=== PATIENT | female | born 2000 | race Caucasian/White ===

== ENCOUNTER 2024-08-22 07:39 | Inpatient (IN) ==
[2024-08-22] MEDS ORDERED: OXYTOCIN 30 UNITS/NSS 30 UNITS/500 ML BAG IV PRN (09:13)
[2024-08-22] MEDS ORDERED: LIDOCAINE 1% LOCAL 20 ML VIAL INFIL PRN (09:13)
--- NOTE | 2024-08-22 09:17 | Obstetrical Progress Note ---
Date of Service August 22, 2024 Assessment & Plan (1) Encounter for induction of labor: Plan: 24yo G1 @41 +weeks FHR; CAT1 Ctx; minimal VE; ft/post/thick No effacement EFW; 7-8lbs Plan Cytotec Po Q 4 Admission and Anticipated Discharge Date Admission Date: August 22, 2024 Results & Data Vital Signs (Past 12 Hours) Vital Signs Temp Pulse Resp BP 08/22/24 08:22 81 132/74 08/22/24 08:18 37.0 C 81 20 132/74
[2024-08-22 09:58] LABS: Hematocrit (blood only) 39.5 % (37.0-47.0); Mean Corpuscular Hgb Conc 35.4 g/dL (32.0-36.0); Mean Corpuscular Volume 87.4 fL (80.0-100.0); Mean Platelet Volume 12.2 fL (9.4-12.4); Platelet Count 197 K/uL (130-400); RDW Coefficient of Variation 13.2 % (11.5-14.5); RDW Standard Deviation 41.9 fL (36.4-46.3); Red Blood Count 4.52 M/uL (4.20-5.40); White Blood Count 15.06 K/ul (4.8-10.8)
[2024-08-22] MEDS ORDERED: Nursing to Pharmacy Communication SCH (10:00)
[2024-08-22] MEDS: miSOPROStoL 50 MCG TAB PO SCH (10:14)
[2024-08-22] MEDS ORDERED: miSOPROStoL 50 MCG TAB PO SCH ×2 (10:15→12:00)
--- OUTSIDE RECORDS SUMMARY | 2024-08-22 11:05 | External Medical Summary | Summary of Care ---
Author Name Unknown Organization [facility] Address [address] [place] [address] Phone [phone] Care Team Providers Care Nylon Machine Operator Name Role Phone Unavailable Primary Care Provider Unavailabl e Reason for Visit * Reason Onset Date Comments Abdominal Pain 07/19/[address] Valencia Encounter Details Date Type Department Care Team (Late st Contact Info) Description 07/19/2024 Telephone Gynecology/Obstetrics [facility] [address] [place] [address] Anton Valencia MD [address] [place] [id number] Abdominal Pain (Review with Dr. Valencia) Allergies Active Allergy Reactions Criticality Noted Date Comments Sulfa Antibiotics Rash 12/04/2011 documented as of this encounter (statuses as of 07/19/2024) Medications Medication Sig Dispensed Refills Start Date End Date Status 28-0.8 MG Oral Tablet Take by mouth. Active Breast PumpIndications:Breast feeding status of mother Z39.1 breast feeding status of mother 1 Each 07/10/2024 Active documented as of this encounter (statuses as of 07/19/2024) Active Problems Problem Noted Date Diagnosed Date Obesity in , antepartum 02/04/2024 Overview: Class 1 Need for rubella vaccination 01/10/2024 Supervision of normal first , antepartu m 01/06/2024 [place] (generalized anxiety disorder) 01/06/2024 Overview: Declines meds Intermittent asthma with reliever use up to twic e per week 01/27/2012 Estimated Date of Delivery Comme nts Yes 08/11/2024 Based on Ultraso und documented as of this encounter (statuses as of 07/19/2024) Resolved Problems Problem Noted Date Diagnosed Date Resolved Date Class 1 obesity due to exces s calories in adult 01/06/2024 02/04/2024 Tobacco smoking complicating 01/06/2024 07/17/2024 Overview: Vaping at [facility], has cut down since +HPT. QUIT Bronchospasm, exercise-induced 12/11/2011 01/27/2012 documented as of this encounter (statuses as of 07/19/2024) Immunizations Name Administration Dates Next Due DTaP Dipth/Tet/Acell Pertussis (Infanrix), Peds 09/16/2005,02/23/2003,02/14/2002,12/14,2001 HIB PRP-T, 4 Dose, PF, IM (H iberix, ActHib) 02/23/2003,02/14/2002,2001,09/28 HPV Vaccine, 4-Valent 02/10/2013 Hepatitis A, Ped/Adol., 18 y ear and below, 2-Dose 09/04/2008,09/01/2007 Hepatitis B, 0-19 yrs 02/23/2003,05/17/2002,09/0 04/2001 IPV - Polio Virus Vaccine (Inact) 2004,02/14/2002,2001,09/28 MMR - Measles/Mumps/Rubella Vaccine 09/16/2005,1 2001 Meningococcal Conjugate Vacc ine (Menactra/Menveo) 02/10/2013 Pneumococcal Conjugate Vacc, 13 Valent (Prevnar) 09/13/2003,02/14/2002,2001,09/28 Seasonal Influenza Intranasal 08/22/2012 TDAP, Age 7 and older, IM (Adacel) 02/10/2013 Varicella Vaccine (Chicken Pox) 09/04/2007,09/25 documented as of this encounter Social History Tobacco Use Types Packs/Day Years Used Date Smoking Tobacco: Former Cigarettes Smokeless Tobacco: Never Alcohol Use Standard Drinks/Week Comments No 0 (1 standard drink = 0.6 oz pur e alcohol) Hunger Vital Sign Answer Date Recorded Within the past 12 months, y ou worried that your food would run out before you got the money to buy more. Never true 07/17/20 24 Within the past 12 months, t he food you bought just didn't last and you didn't have money to get more. Never true 07/17/2024 [place] Depression Scale Answer Date Recorded [place] Depression Scale Total 5 06/23/2024 The thought of harming myself has occurred to me . Never 06/23/2024 Childcare Answer Date Recorded Do you feel overwhelmed with taking care of a child, family member or friend? No 07/17/2024 Does your family need help f inding childcare? (Household - for ages 0-17 years) Not on file 07/17/2024 Clothing Answer Date Recorded Have you been unable to get clothing when it was really needed? No 07/17/2024 Is your family able to get c lothes or diapers when needed? (Household - for ages 0-17 years) Not on file 07/17/2024 Personal Safety Answer Date Recorded Do you feel unsafe or have concerns for your saf ety? No 07/17/2024 Do you have concerns for you r family's safety? (Household - for ages 0-17 years) Not on file 07/17/2024 Utilities Answer Date Recorded Do you have trouble paying y our heating, water, or electric bill? No 07/17/2024 Is your family able to pay t he heat, water, or electric bill? (Household - for ages 0-17 years) Not on file 07/17/2024 Does your family have access to good internet? (Household - for ages 0-17 years) Not on file 07/17/2024 Employment Status Answer Date Recorded Are you unemployed or without regular income? No 07/17/2024 Does the household have a re gular source of income? (Household - for ages 0-17 years) Not on file 07/17/2024 Social Connections Answer Date Recorded How often do you feel lonely or isolated from th ose around you? Never 07/17/2024 Financial Resource Strain Answer Date R ecorded Do you have any trouble payi ng for your medications, or do you think you might in the future? No 07/17/2024 Does your family have troubl e paying for medicine? (Household - for ages 0-17 years) Not on file 07/17/2024 Transportation Needs Answer Date Record ed READ ONLY Do you have troubl e getting a ride to medical visits or work? Never True 07/17/2024 Does your family have a hard time getting a ride to doctors visits? (Household - for ages 0-17 years) Not on file 07/17/2024 Has lack of transportation k ept you from medical appointments, meetings, work, or from getting things needed for daily living? Check all that apply. No 07/17/2024 Do you (or your family) have trouble finding or paying for a ride (transportation)? (Household - for ages 0-17 years) Not on file 07/17/2024 Housing Stability Answer Date Recorded Do you currently live in a s helter or have no steady place to sleep at night? No 07/17/2024 READ ONLY Do you think you a re at risk of becoming homeless? No 07/17/2024 Does your family worry about paying for your home or becoming homeless? (Household - for ages 0-17 years) Not on file 0 07/17/2024 Are you homeless or worried that you might be in the future? No 07/17/2024 Are you (or your family) maria c eless or worried that you might be in the future? (Household - for ages 0-17 years) Not on file Food Insecurity Answer Date Recorded Do you need food for this week? No 07/17/2024 Are you able to get enough f ood for your family? (Household - for ages 0-17 years) Not on file 07/17/2024 Does your family need food t his week? (Household - for ages 0-17 years) Not on file 07/17/2024 Do you always have enough fo od for your family? (Household - for ages 0-17 years) Not on file 07/17/2024 Estimated Date of Delivery Comme nts Yes 08/11/2024 Based on Ultraso und Sex and Gender Information Value Date Recorded Sex Assigned at Female 01/17/2020 3:53 PM EST Gender Identity Female 01/17/2020 3:53 PM EST Sexual Orientation Straight 01/17/2020 3: 53 PM EST Job Start Date Occupation Industry Not on file Not on file Not on file documented as of this encounter Miscellaneous Notes * Telephone Encounter - Astrid Navarro RN - 07/19/2024 8:06 AM EDT Patient is currently 36w5d calling c/o abdominal pain. Is the pain radiate from your back to the abdomen? No Do the pains feel like contractions? yes Is the pain relieved by position change? no Are you having any vaginal bleeding? no Are you having any leaking of fluid? no Are you having any nausea, vomiting , bowel changes, fever or pain with urination? No Counseled pt to empty bladder, lie on left side, drink large glass of water and monitor contractions and movement for one hour and call with results. Patient to call back immediately if symptoms worsen, persist or no movement noted. Patient describes a tightening that also feels like gas pain. Coming and going for a couple hours. Unable to tell me how often they are occurring but experienced the pain while on phone call with me.Able to talk through. No bleeding or leaking. Unable to rate pain on scale. Has not tried tylenol. + FM. Will review with Dr. Valencia. Advised patient to call back immediately with changes. documented in this encounter Plan of Treatment Upcoming Encounters Date Type Department Care Team (Late st Contact Info) Description 07/25/2024 2:45 PM EDT Office Visit Gynecology/Obstetrics [facility] [address] [place] [address] Alva Clemons CRNP [address] [place] [address] Health Maintenance Due Date Last Done Comments Pneumococcal Vaccine: Pediatrics (0 to 5 Years) and At-Risk Patients (6 to 64 Years) (1 of 1 - PPSV23 or PCV20) 2007 09/13/2003, 02/14/2002, 2001, Additional history exists Depression Screening 2013 HPV (Gardasil) Vaccine (2 - 2-dose series) 08/13/2013 02/10/2013 DTap/Tdap Vaccines (7 - Td or Tdap) 02/10/2023 02/10/2013, 09/16/2005, 02/23/2003, Additional history exists COVID-19 Vaccine ( season) 2023 Influenza Vaccine (FLU shot) (#1) 2024 08/22/2012, 08/22/2012 Gonorrhea / Chlamydia Screen 01/06/2025, 06/21/2019, 05/05/2019, Additional history exists Pap Smear 01/06/2027 01/06/2024 Hepatitis B Vaccine Completed 02/23/2003, 05/17/2002, 2001 MENINGOCOCCAL (MENACTRA/MENVEO) Aged Out 02/10/2013, 02/10/2013 No longer eligibl e based on patient's age to complete this topic documented as of this encounter Medical Devices Not on filedocumented as of this encounter
--- OUTSIDE RECORDS SUMMARY | 2024-08-22 11:05 | External Medical Summary | Summary of Care ---
Author Name Unknown Organization [facility] Address [address] [place] [address] Phone [phone] Care Team Providers Care Content Specialist Name Role Phone Unavailable Primary Care Provider Unavailabl e Reason for Visit * Reason Onset Date Comments Abdominal Pain 07/19/[address] Valencia Encounter Details Date Type Department Care Team (Late st Contact Info) Description 07/19/2024 Telephone Gynecology/Obstetrics [facility] [address] [place] [address] Anton Valencia MD [address] [place] [...] money to get more. Never true 07/17/2024 [place] Depression Scale Answer Date Recorded [place] Depression Scale Total 5 06/23/2024 The thought [...] changes, fever or pain with urination? No Patient describes a tightening that also feels [...] 07/25/2024 2:45 PM EDT Office Visit Gynecology/Obstetrics [facility] [address] [address] BackerAlva CRNP [address] [place] [address] Health Maintenance Due Date Last Done Comments Pneumococcal Vaccine: Pediatrics (0 to 5 Years) and At-Risk Patients (6 to 64 Years) (1 of 1 - PPSV23 or PCV20) 2007 09/13/2003, 02/14/2002, 2001, Additional history exists Depression Screening 2013 HPV (Gardasil) Vaccine (2 - 2-dose series) 08/13/2013 02/10/2013 DTap/Tdap Vaccines (7 - Td or Tdap) 02/10/2023 02/10/2013, 09/16/2005, 02/23/2003, Additional history exists COVID-19 Vaccine (2022- season) 2023 Influenza Vaccine (FLU shot) (#1) [...]
--- OUTSIDE RECORDS SUMMARY | 2024-08-22 11:05 | External Medical Summary | Summary of Care ---
Author Name Unknown Organization [facility] Address [address] [place] [address] Phone [phone] Care Team Providers Care Director Of Maintenance Name Role Phone Unavailable Primary Care Provider Unavailabl e Reason for Visit * Reason Onset Date Comments Abdominal Pain 07/19/[address] Valencia Encounter Details Date Type Department Care Team (Late st Contact Info) Description 07/19/2024 Telephone Gynecology/Obstetrics [facility] [address] [place] [address] Anton Valencia MD [address] [place] [...] money to get more. Never true 07/17/2024 [place] Depression Scale Answer Date Recorded [place] Depression Scale Total 5 06/23/2024 The thought [...] Visit Gynecology/Obstetrics [facility] [address] [address] BackerAlva CRNP [address] [place] [address] Health Maintenance Due Date Last Done Comments [...]
--- OUTSIDE RECORDS SUMMARY | 2024-08-22 11:05 | External Medical Summary | Summary of Care ---
Author Name Unknown Organization [facility] Address [address] [place] [address] Phone [phone] Care Team Providers Care Postal Clerk Name Role Phone Unavailable Primary Care Provider Unavailabl e Reason for Visit * Reason Onset Date Comments Abdominal Pain 07/19/[address] Valencia Encounter Details Date Type Department Care Team (Late st Contact Info) Description 07/19/2024 Telephone Gynecology/Obstetrics [facility] [address] [place] [address] Anton Valencia MD [address] [place] [...] money to get more. Never true 07/17/2024 [place] Depression Scale Answer Date Recorded [place] Depression Scale Total 5 06/23/2024 The thought [...] Encounter - Astrid Navarro RN - 07/19/2024 8:45 AM EDT Patient Called back in while waiting for Dr. Valencia to call back , she reports the pain has become less intense. No other symptoms changes. Reviewed with Dr. Valencia oncall provider who advised me to use my best judgement. As the patient is not sure about her symptoms, but described a significant pain. I advised patient to go to [facility] for evaluation to rule out labor. Patient is agreeable to this and will have boyfriend drive her therenow. Called [facility] and d and made them aware. * Telephone Encounter - Astrid Navarro RN [...] EDT Office Visit Gynecology/Obstetrics [facility] [address] [place] [address] Backer, LISA Melgar [address] [place] [address] Health Maintenance Due Date Last Done Comments [...]
--- OUTSIDE RECORDS SUMMARY | 2024-08-22 11:05 | External Medical Summary | Summary of Care ---
Author Name Unknown Organization [facility] Address [address] [place] [address] Phone [phone] Care Team Providers Care Wall Taper Name Role Phone Unavailable Primary Care Provider Unavailabl e Reason for Visit * Reason Comments Return Visit Encounter Details Date Type Department Care Team (Late st Contact Info) Description 08/08/2024 2:15 PM EDT Office Visit Gynecology/Obstetric s [facility] [address] [place] [address] Elidia Raymundo CRNP [address] [place] [address] Supervision of normal first , antepartum*; [place] (generalized anxiety disorder); Need for rubella vaccination; Obesity in , antepartum Allergies Active Allergy Reactions Criticality Noted Date Comments Sulfa Antibiotics Rash 12/04/2011 documented as of this encounter (statuses as of 08/08/2024) Medications Medication Sig Dispensed Refills Start Date End Date Status 28-0.8 MG Oral Tablet Take by mouth. Active Breast Pump Dispense double electric breast pump. Dx:Z39.1 1 Each 08/03/2024 08/08/2024 Discontinued documented as of this encounter (statuses as of 08/08/2024) Active Problems Problem Noted Date Diagnosed Date [...] as of this encounter (statuses as of 08/08/2024) Resolved Problems Problem Noted Date Diagnosed Date Resolved Date Class 1 obesity due to exces s calories in adult 01/06/2024 02/04/2024 Tobacco smoking complicating 01/06/2024 07/17/2024 Overview: Vaping at [facility], has cut down since +HPT. QUIT Bronchospasm, exercise-induced 12/11/2011 01/27/2012 documented as of this encounter (statuses as of 08/08/2024) Immunizations Name Administration Dates Next Due DTaP Dipth/Tet/Acell Pertussis (Infanrix), Peds 09/16/2005,02/23/2003,02/14/2002,12/14,2001 HIB PRP-T, 4 Dose, PF, IM (H iberix, ActHib) 02/23/2003,02/14/2002,2001,09/28 HPV Vaccine, 4-Valent 02/10/2013 Hepatitis A, Ped/Adol., 18 y ear and below, 2-Dose 09/04/2008,09/01/2007 Hepatitis B, 0-19 yrs 02/23/2003,05/17/2002,0904/2001 IPV - Polio Virus Vaccine (Inact) 2004,02/14/2002,2001,09/28 Influenza Vaccine, Live, Int ranasal, Trivalent (Flumist) 08/22/2012 MMR - Measles/Mumps/Rubella Vaccine 09/16/2005,1 2001 Meningococcal Conjugate Vacc ine (Menactra/Menveo) 02/10/2013 Pneumococcal Conjugate Vacc, 13 Valent (Prevnar) 09/13/2003,02/14/2002,2001,09/28 TDAP, Age 7 and older, IM (Adacel) [...] money to get more. Never true 07/17/2024 [place] Depression Scale Answer Date Recorded [place] Depression Scale Total 5 06/23/2024 The thought [...] on file documented as of this encounter Last Filed Vital Signs Vital Sign Reading Time Taken Comments Blood Pressure 122/84 08/08/2024 2:01 PM EDT Pulse - - Temperature - - Respiratory Rate - - Oxygen Saturation - - Inhaled Oxygen Concentration - - Weight 105.7 kg (233 lb) 08/08/2024 2:01 PM EDT Height 167.6 cm (5' 6") 08/08/2024 2:01 PM EDT Body Mass Index 37.61 08/08/2024 2:01 PM EDT documented in this encounter Progress Notes * Elidia Raymundo CRNP - 08/08/2024 2:16 PM EDT 39w4d No concerns. Baby iss active. No contractions, bleeding, LOF. Breast pump faxed last week but claim it wasn't received. Faxed again today. IOL 08/22. LISA Tran documented in this encounter Nursing Notes * Annamarie Calloway LPN - 08/08/2024 2:07 PM EDT 39W5D documented in this encounter Plan of Treatment Upcoming Encounters Date Type Department Care Team (Late st Contact Info) Description 08/16/2024 8:15 AM EDT Office Visit Gynecology/Obstetrics [facility] [address] [place] [address] Elidia Raymundo CRNP [address] [place] [address] Health Maintenance Due Date Last Done Comments [...] 02/23/2003, Additional history exists COVID-19 Vaccine ( - season) 2024 Influenza Vaccine (FLU shot) (#1) 2024 08/22/2012, 08/22/2012 Gonorrhea / Chlamydia Screen 01/06/2025, 06/21/2019, 05/05/2019, Additional history exists Pap Smear 01/06/2027 01/06/2024 Hepatitis B Vaccine Completed 02/23/2003, 05/17/2002, 2001 MENINGOCOCCAL (MENACTRA/MENVEO) Aged Out 02/10/2013, 02/10/2013 No longer eligibl e based on patient's age to complete this topic documented as of this encounter Medical Devices Not on filedocumented as of this encounter Visit Diagnoses Diagnosis Supervision of normal first , antepartum- Primary [place] (generalized anxiety disorder) Generalized anxiety disorder Need for rubella vaccination Need for prophylactic vaccination and inoculation against rubella alone Obesity in , antepartum Obesity complicating , childbirth, or the puerperium, antepartum condition or complication documented in this encounter
--- OUTSIDE RECORDS SUMMARY | 2024-08-22 11:05 | External Medical Summary | Summary of Care ---
Author Name Unknown Organization [facility] Address [address] [place] [address] Phone [phone] Care Team Providers Care It Architecture Consultant Name Role Phone Unavailable Primary Care Provider Unavailabl e Reason for Visit * Reason Comments Return Visit Encounter Details Date Type Department Care Team (Late st Contact Info) Description 07/17/2024 11:45 AM EDT Office Visit Gynecology/Obstetric s [facility] [address] [facility] [place] [address] Jennifer Arreaga, DNP, CNM [address] [facility] [place] [id number] Supervision of normal first , antepartum*; [place] (generalized anxiety disorder); Need for rubella vaccination; Obesity in , antepartum Allergies Active Allergy Reactions Criticality Noted Date Comments Sulfa Antibiotics Rash 12/04/2011 documented as of this encounter (statuses as of 07/17/2024) Medications Medication Sig Dispensed Refills Start Date End Date Status 28-0.8 MG Oral Tablet Take by mouth. Active Breast PumpIndications:Breast feeding status of mother Z39.1 breast feeding status of mother 1 Each 07/10/2024 Active documented as of this encounter (statuses as of 07/17/2024) Active Problems Problem Noted Date Diagnosed Date [...] as of this encounter (statuses as of 07/17/2024) Resolved Problems Problem Noted Date Diagnosed Date Resolved Date Class 1 obesity due to exces s calories in adult 01/06/2024 02/04/2024 Tobacco smoking complicating 01/06/2024 07/17/2024 Overview: Vaping at [facility], has cut down since +HPT. QUIT Bronchospasm, exercise-induced 12/11/2011 01/27/2012 documented as of this encounter (statuses as of 07/17/2024) Immunizations Name Administration Dates Next Due DTaP [...] money to get more. Never true 07/17/2024 [place] Depression Scale Answer Date Recorded [place] Depression Scale Total 5 06/23/2024 The thought [...] Sign Reading Time Taken Comments Blood Pressure 124/76 07/17/2024 11:49 AM EDT Pulse - - Temperature - - Respiratory Rate - - Oxygen Saturation - - Inhaled Oxygen Concentration - - Weight 103.4 kg (228 lb) 07/17/2024 11:49 AM EDT Height 167.6 cm (5' 6") 07/17/2024 11:49 AM EDT Body Mass Index 36.8 07/17/2024 11:49 AM EDT documented in this encounter Progress Notes * Jennifer Arreaga DNP, PAT - 07/17/2024 12:04 PM EDT Kellie Dyson is a 23 year old female here for her routine OB appointment at 36w3d Her Estimated Date of Delivery: 08/11/24 REVIEW OF SYSTEMS: She affirms movement. Denies vaginal bleeding, LOF, contractions, N/V, headaches. Pt and partner are doing online classes and plan to attend the in person CBE class next month. States she will call back in with fax number for breast pump rx to be faxed PHYSICAL EXAM: Filed Vitals: 07/17/24 1149 BP: 124/76 Weight: 103.4 kg (228 lb) Height: 1.676 m (5' 6") +FHT 140 Fundal height 35cm SOBEIDA 15.6 EFW 66% ASSESSMENT/PLAN: (Z34.00) Supervision of normal first , antepartum (primary encounter diagnosis) Plan: GROUP B STREP CULTURE/PCR (F41.1) [place] (generalized anxiety disorder) - not on meds, controlled at this time. -Reviewed labor precautions, kick counts, loss of fluid, vaginal bleeding, round ligament pain, and encouraged hydration. - GBS swab collected today Mid Level Clinician Documentation Provider requested greenhouse or nursery transplanter. Name of greenhouse or nursery transplanter: Juana amado - RTO in 1 week Jennifer Arreaga DNP, PAT * Char Muro LPN - 07/17/2024 11:54 AM EDT 36w3d Growth today Sobeida 15.6 Growth 66% Needs gbs documented in this encounter Plan of Treatment Pending Results Name Type Priority Associated Diagnoses Date /Time GROUP B STREP CULTURE/PCR Lab Routine Supervision of normal first , antepartum 07/17/2024 12:50 PM EDT Scheduled Orders Name Type Priority Associated Diagnoses Orde r Schedule GROUP B STREP CULTURE/PCR Lab Routine Supervision of normal first , antepartum Expected: 07/17/2024, Expires: 07/17/2025 Health Maintenance Due Date Last Done Comments Pneumococcal Vaccine: Pediatrics (0 to 5 Years) and At-Risk Patients (6 to 64 Years) (1 of 1 - PPSV23 or PCV20) 2007 09/13/2003, 02/14/2002, 2001, Additional history exists Depression Screening 2013 HPV (Gardasil) Vaccine (2 - 2-dose series) 08/13/2013 02/10/2013 DTaP,Tdap,and Td Vaccines (7 - Td or Tdap) 02/10/2023 [...]
--- OUTSIDE RECORDS SUMMARY | 2024-08-22 11:05 | External Medical Summary | Summary of Care ---
Author Name Unknown Organization [facility] Address [address] [place] [address] Phone [phone] Care Team Providers Care Assistant Floor Covering Printer Name Role Phone Unavailable Primary Care Provider Unavailabl e Reason for Visit * Reason Comments Return Visit Encounter Details Date Type Department Care Team (Late st Contact Info) Description 07/25/2024 2:45 PM EDT Office Visit Gynecology/Obstetric s Niranjan Presley [address] [place] [address] Alva Clemons CRNP [address] [place] [address] Supervision of normal first , antepartum*; [place] (generalized anxiety disorder); Need for rubella vaccination; Obesity in , antepartum Allergies Active Allergy Reactions Criticality Noted Date Comments Sulfa Antibiotics Rash 12/04/2011 documented as of this encounter (statuses as of 07/25/2024) Medications Medication Sig Dispensed Refills Start Date End Date Status 28-0.8 MG Oral Tablet Take by mouth. Active Breast PumpIndications:Br east feeding status of mother Z39.1 breast feeding status of mother 1 Each 07/10/2024 07/25/2024 Discontinued( Medication List Clean Up) documented as of this encounter (statuses as of 07/25/2024) Active Problems Problem Noted Date Diagnosed Date [...] as of this encounter (statuses as of 07/25/2024) Resolved Problems Problem Noted Date Diagnosed Date Resolved Date Class 1 obesity due to exces s calories in adult 01/06/2024 02/04/2024 Tobacco smoking complicating 01/06/2024 07/17/2024 Overview: Vaping at [facility], has cut down since +HPT. QUIT Bronchospasm, exercise-induced 12/11/2011 01/27/2012 documented as of this encounter (statuses as of 07/25/2024) Immunizations Name Administration Dates Next Due DTaP [...] money to get more. Never true 07/17/2024 [place] Depression Scale Answer Date Recorded [place] Depression Scale Total 5 06/23/2024 The thought [...] Sign Reading Time Taken Comments Blood Pressure 122/78 07/25/2024 2:51 PM EDT Pulse - - Temperature - - Respiratory Rate - - Oxygen Saturation - - Inhaled Oxygen Concentration - - Weight 104.8 kg (231 lb) 07/25/2024 2:51 PM EDT Height - - Body Mass Index 37.28 07/17/2024 11:49 AM EDT documented in this encounter Progress Notes * Alva Clemons CRNP - 07/25/2024 2:51 PM EDT 37w4d Baby moving well. Having intermittent lower abdominal cramping, mild. No leaking/bleeding. She had called the office last week with cramping - this resolved completely after using the bathroom. Discussed peds, plans to use [facility] in [place]. Reviewed [facility] and labor signs, when to call. 1 week return LISA Zapata * Mirela Kinney LPN - 07/25/2024 2:51 PM EDT 37w4d Denies vaginal bleeding/rom + movement No new concerns documented in this encounter Plan of Treatment Upcoming Encounters Date Type Department Care Team (Late st Contact Info) Description 08/03/2024 8:15 AM EDT Office Visit Gynecology/Obstetrics Niranjan Presley [address] [place] [phone] Elidia Raymundo CRNP [address] [place] [address] Health Maintenance Due Date Last Done Comments [...]
--- OUTSIDE RECORDS SUMMARY | 2024-08-22 11:05 | External Medical Summary | Summary of Care ---
Author Name Unknown Organization [facility] Address [address] [place] [address] Phone [phone] Care Team Providers Care Access Liaison Name Role Phone Unavailable Primary Care Provider Unavailabl e Reason for Visit * Reason Comments Return Visit Encounter Details Date Type Department Care Team (Late st Contact Info) Description 08/03/2024 8:15 AM EDT Office Visit Gynecology/Obstetric s Niranjan Presley [address] [place] [address] Elidia Raymnudo CRNP [address] [place] [address] Supervision of normal first , antepartum*; [place] (generalized anxiety disorder); Need for rubella vaccination; Obesity in , antepartum Allergies Active Allergy Reactions Criticality Noted Date Comments Sulfa Antibiotics Rash 12/04/2011 documented as of this encounter (statuses as of 08/03/2024) Medications Medication Sig Dispensed Refills Start Date End Date Status 28-0.8 MG Oral Tablet Take by mouth. Active Breast Pump Dispense double electric breast pump. Dx:Z39.1 1 Each 08/03/2024 Active documented as of this encounter (statuses as of 08/03/2024) Active Problems Problem Noted Date Diagnosed Date [...] as of this encounter (statuses as of 08/03/2024) Resolved Problems Problem Noted Date Diagnosed Date Resolved Date Class 1 obesity due to exces s calories in adult 01/06/2024 02/04/2024 Tobacco smoking complicating 01/06/2024 07/17/2024 Overview: Vaping at [facility], has cut down since +HPT. QUIT Bronchospasm, exercise-induced 12/11/2011 01/27/2012 documented as of this encounter (statuses as of 08/03/2024) Immunizations Name Administration Dates Next Due DTaP [...] money to get more. Never true 07/17/2024 [place] Depression Scale Answer Date Recorded [place] Depression Scale Total 5 06/23/2024 The thought [...] Sign Reading Time Taken Comments Blood Pressure 120/82 08/03/2024 8:16 AM EDT Pulse - - Temperature - - Respiratory Rate - - Oxygen Saturation - - Inhaled Oxygen Concentration - - Weight 105.5 kg (232 lb 9.6 oz) 08/03/2024 8:16 AM EDT Height - - Body Mass Index 37.54 07/17/2024 11:49 AM EDT documented in this encounter Progress Notes * Elidia Raymundo CRNP - 08/03/2024 8:32 AM EDT 38w6d No concerns. Baby is active. Denies contractions, occasional cramping. No bleeding or LOF. Breast pump rx faxed to number given by pt. Discussed IOL. She is hoping to avoid this but is agreeable to any time after 41w. LISA Tran * Lorri Miles CMA - 08/03/2024 8:16 AM EDT 38w6d Denies any concerns documented in this encounter Plan of Treatment Upcoming Encounters Date Type Department Care Team (Late st Contact Info) Description 08/08/2024 2:15 PM EDT Office Visit Gynecology/Obstetrics Niranjan Presley [address] [place] [address] Elidia Raymundo CRNP [address] [place] [address] Health Maintenance Due Date Last Done Comments [...]
--- OUTSIDE RECORDS SUMMARY | 2024-08-22 11:05 | External Medical Summary | Summary of Care ---
Author Name Unknown Organization [facility] Address [address] [place] [address] Phone [phone] Care Team Providers Care Liberal Arts Teacher Name Role Phone Unavailable Primary Care Provider Unavailabl e Reason for Visit * Reason Onset Date Comments Abdominal Pain 07/19/[address] Valencia Encounter Details Date Type Department Care Team (Late st Contact Info) Description 07/19/2024 Telephone Gynecology/Obstetrics [facility] [address] [place] [address] Anton Valencia MD [address] [place] [...] money to get more. Never true 07/17/2024 [place] Depression Scale Answer Date Recorded [place] Depression Scale Total 5 06/23/2024 The thought [...] Has not tried tylenol. + FM. Will call and review with Dr. Valencia. documented in this encounter Plan of Treatment Upcoming Encounters Date Type Department Care Team (Late st Contact Info) Description 07/25/2024 2:45 PM EDT Office Visit Gynecology/Obstetrics Niranjan Presley [address] [place] [address] Alva Clemons CRNP [address] [address] Health Maintenance Due Date Last Done Comments [...]
--- OUTSIDE RECORDS SUMMARY | 2024-08-22 11:05 | External Medical Summary | Summary of Care ---
Author Name Unknown Organization [facility] Address [address] [place] [address] Phone [phone] Care Team Providers Care Ward Maid Name Role Phone Unavailable Primary Care Provider Unavailabl e Reason for Visit * Reason Comments Return Visit Encounter Details Date Type Department Care Team (Late st Contact Info) Description 07/17/2024 11:45 AM EDT Office Visit Gynecology/Obstetric s [facility] [address] [facility] [place] [address] Jennifer Arreaga, DNP, CNM [address] [facility] [place] [phone] Supervision of normal first , antepartum*; [place] [...] money to get more. Never true 07/17/2024 [place] Depression Scale Answer Date Recorded [place] Depression Scale Total 5 06/23/2024 The thought [...] encouraged hydration. - GBS swab collected today Builder'S Labourer Documentation Provider requested piece presser. Name of piece presser: Juana amado - RTO in 1 week Jennifer Arreaga DNP, PAT * Char Muro LPN - 07/17/2024 11:54 AM EDT 36w3d Growth today Sobeida 15.6 Growth 66% Needs gbs documented in this encounter Plan of Treatment Scheduled Orders Name Type Priority Associated Diagnoses [...]
--- OUTSIDE RECORDS SUMMARY | 2024-08-22 11:05 | External Medical Summary | Summary of Care ---
Author Name Unknown Organization [facility] Address [address] [place] [address] Phone [phone] Care Team Providers Care Pizza Driver Name Role Phone Unavailable Primary Care Provider Unavailabl e Reason for Visit * Reason Onset Date Comments Appointment 07/27/2024 Encounter Details Date Type Department Care Team (Late st Contact Info) Description 07/27/2024 Telephone Gynecology/Obstetrics [facility] [address] [facility] [place] [address] Services, Scheduling [address] [place] [address] Appointment Allergies Active Allergy Reactions Criticality Noted Date Comments Sulfa Antibiotics Rash 12/04/2011 documented as of this encounter (statuses as of 2024) Medications Medication Sig Dispensed Refills Start Date End Date Status 28-0.8 MG Oral Tablet Take by mouth. Active documented as of this encounter (statuses as of 2024) Active Problems Problem Noted Date Diagnosed Date [...] as of this encounter (statuses as of 2024) Resolved Problems Problem Noted Date Diagnosed Date Resolved Date Class 1 obesity due to exces s calories in adult 01/06/2024 02/04/2024 Tobacco smoking complicating 01/06/2024 07/17/2024 Overview: Vaping at [facility], has cut down since +HPT. QUIT Bronchospasm, exercise-induced 12/11/2011 01/27/2012 documented as of this encounter (statuses as of 2024) Immunizations Name Administration Dates Next Due DTaP [...] money to get more. Never true 07/17/2024 [place] Depression Scale Answer Date Recorded [place] Depression Scale Total 5 06/23/2024 The thought [...] encounter Miscellaneous Notes * Telephone Encounter - Zoie Myers OSA - 07/27/2024 2:47 PM EDT Pt called wanting to know if 08/03 appt can be r/s for 07/31, pt having car trouble and can not make it any other day next week for weekly appts. Please assist. Thank you documented in this encounter Plan of Treatment Upcoming Encounters Date Type Department Care Team (Late st Contact Info) Description 08/03/2024 8:15 AM EDT Office Visit Gynecology/Obstetrics Niranjan Presley [address] [place] [address] Elidia Raymundo CRNP [address] [place] [address] Health Maintenance Due Date Last Done Comments [...] Additional history exists COVID-19 Vaccine ( - 2022- season) 2024 Influenza Vaccine (FLU shot) (#1) [...]
--- OUTSIDE RECORDS SUMMARY | 2024-08-22 11:06 | External Medical Summary ---
Author Name Unknown Address Unknown Organization K01:[facility] [place] [address] [place] [address] Laboratory Report Ordering Provider Test Date Status DINAH CANTOR 07/17/2024 12:50:01 Final Observation Date Value Abnormality Reference (Units ) Status Streptococcus agalactiae DNA [Presence] in Specimen by LAZARA with probe detection 07/17/2024 12:50:01 Negative Negative Final No Group B Streptococcus det ected by culture-enhanced PCR (amplified probe). GBS GBSCT - [facility] 07/17/2024 12:50:01 0.0 Final GBS SPCCT - [facility] 07/17/2024 12:50:01 30.3 Final Performing Location [facility] [place] - [address] [place] [address]
--- OUTSIDE RECORDS SUMMARY | 2024-08-22 11:06 | External Medical Summary ---
Author Name Unknown Address Unknown Organization K0G:[facility] [place] [address] [place] [address] Laboratory Report Ordering Provider Test Date Status DONNIE HOLMAN 06/23/2024 09:49:52 Final Observation Date Value Abnormality Reference (Units ) Status WBC, Total 06/23/2024 09:49:52 12.76 Above high normal 4 .00-10.80 (K/uL) Final RBC 06/23/2024 09:49:52 4.22 3.85-5.15 (M/uL) Final Hemoglobin 06/23/2024 09:49:52 13.0 12.0-15.3 (g/dL) Final HCT 06/23/2024 09:49:52 38.2 36.0-45.2 (%) Final MCV 06/23/2024 09:49:52 90.5 81.5-97.5 (fL) Final MCH 06/23/2024 09:49:52 30.8 27.0-34.0 (pg) Final MCHC 06/23/2024 09:49:52 34.0 32.0-36.0 (g/dL) Final RDW 06/23/2024 09:49:52 14.1 11.5-15.5 (%) Final Platelets 06/23/2024 09:49:52 209 140-400 (K /uL) Final MPV 06/23/2024 09:49:52 10.7 6.6-11.1 ( fL) Final [facility]forming Location [facility] [facility] [address] [place] [address]
--- OUTSIDE RECORDS SUMMARY | 2024-08-22 11:06 | External Medical Summary | Summary of Care ---
Author Name Unknown Organization [facility] Address [address] [place] [address] Phone [phone] Care Team Providers Care Nurses' Aide Name Role Phone Unavailable Primary Care Provider Unavailabl e Reason for Visit * Reason Comments New Visit Encounter Details Date Type Department Care Team (Late st Contact Info) Description 07/10/2024 9:30 AM EDT Office Visit Gynecology/Obstetric s [facility] [address] [facility] [place] [address] Jennifer Arreaga, DNP, CNM [address] [facility] [place] [address] Supervision of normal first , antepartum*; [place] (generalized anxiety disorder); Need for rubella vaccination; Obesity in , antepartum; Breast feeding status of mother; Fundal height low for dates in third trimester Allergies Active Allergy Reactions Criticality Noted Date Comments Sulfa Antibiotics Rash 12/04/2011 documented as of this encounter (statuses as of 07/10/2024) Medications Medication Sig Dispensed Refills Start Date End Date Status 28-0.8 MG Oral Tablet Take by mouth. Active Breast PumpIndications:Breast feeding status of mother Z39.1 breast feeding status of mother 1 Each 07/10/2024 Active documented as of this encounter (statuses as of 07/10/2024) Active Problems Problem Noted Date Diagnosed Date Obesity in , antepartum 02/04/2024 Overview: Class 1 Need for rubella vaccination 01/10/2024 Supervision of normal first , antedallin m 01/06/2024 [place] (generalized anxiety disorder) 01/06/2024 Overview: Declines meds Tobacco smoking complicating Overview: Vaping at [facility], has cut down since +HPT. Intermittent asthma with reliever use up to twic e per week 01/27/2012 Estimated Date of Delivery Comme nts Yes 08/11/2024 Based on Ultraso und documented as of this encounter (statuses as of 07/10/2024) Resolved Problems Problem Noted Date Diagnosed Date Resolved Date Class 1 obesity due to exces s calories in adult 01/06/2024 02/04/2024 Bronchospasm, exercise-induced 12/11/2011 01/27/2012 documented as of this encounter (statuses as of 07/10/2024) Immunizations Name Administration Dates Next Due DTaP [...] the money to buy more. Never true 01/06/20 24 Within the past 12 months, t he food you bought just didn't last and you didn't have money to get more. Never true 01/06/2024 [place] Depression Scale Answer Date Recorded [place] Depression Scale Total 5 06/23/2024 The thought of harming myself has occurred to me . Never 06/23/2024 Childcare Answer Date Recorded Do you feel overwhelmed with taking care of a child, family member or friend? Yes 01/06/2024 Does your family need help f inding childcare? (Household - for ages 0-17 years) Not on file 01/06/2024 Clothing Answer Date Recorded Have you been unable to get clothing when it was really needed? No 01/06/2024 Is your family able to get c lothes or diapers when needed? (Household - for ages 0-17 years) Not on file 01/06/2024 Personal Safety Answer Date Recorded Do you feel unsafe or have concerns for your saf ety? No 01/06/2024 Do you have concerns for you r family's safety? (Household - for ages 0-17 years) Not on file 01/06/2024 Utilities Answer Date Recorded Do you have trouble paying y our heating, water, or electric bill? No 01/06/2024 Is your family able to pay t he heat, water, or electric bill? (Household - for ages 0-17 years) Not on file 01/06/2024 Does your family have access to good internet? (Household - for ages 0-17 years) Not on file 01/06/2024 Employment Status Answer Date Recorded Are you unemployed or without regular income? Ye s 01/06/2024 Does the household have a re gular source of income? (Household - for ages 0-17 years) Not on file 01/06/2024 Social Connections Answer Date Recorded How often do you feel lonely or isolated from th ose around you? Often 01/06/2024 Financial Resource Strain Answer Date R ecorded Do you have any trouble payi ng for your medications, or do you think you might in the future? No 01/06/2024 Does your family have troubl e paying for medicine? (Household - for ages 0-17 years) Not on file 01/06/2024 Transportation Needs Answer Date Record ed READ ONLY Do you have troubl e getting a ride to medical visits or work? Never True 01/06/2024 Does your family have a hard time getting a ride to doctors visits? (Household - for ages 0-17 years) Not on file 01/06/2024 Has lack of transportation k ept you from medical appointments, meetings, work, or from getting things needed for daily living? Check all that apply. (Adult - for ages 18 years and over) Not on file 01/06/2024 Do you (or your family) have trouble finding or paying for a ride (transportation)? (Household - for ages 0-17 years) Not on file 01/06/2024 Housing Stability Answer Date Recorded Do you currently live in a s helter or have no steady place to sleep at night? No 01/06/2024 READ ONLY Do you think you a re at risk of becoming homeless? No 01/06/2024 Does your family worry about paying for your home or becoming homeless? (Household - for ages 0-17 years) Not on file 0 01/06/2024 Are you homeless or worried that you might be in the future? (Adult - for ages 18 years and over) Not on file Are you (or your family) maria c eless or worried that you might be in the future? (Household - for ages 0-17 years) Not on file Food Insecurity Answer Date Recorded Do you need food for this week? No 01/06/2024 Are you able to get enough f ood for your family? (Household - for ages 0-17 years) Not on file 01/06/2024 Does your family need food t his week? (Household - for ages 0-17 years) Not on file 01/06/2024 Do you always have enough fo od for your family? (Household - for ages 0-17 years) Not on file 01/06/2024 Estimated Date of Delivery Comme nts Yes [...] Sign Reading Time Taken Comments Blood Pressure 104/70 07/10/2024 9:49 AM EDT Pulse - - Temperature - - Respiratory Rate - - Oxygen Saturation - - Inhaled Oxygen Concentration - - Weight 104.3 kg (230 lb) 07/10/2024 9:49 AM EDT Height - - Body Mass Index 37.12 05/22/2024 11:09 AM EDT documented in this encounter Progress Notes * Jennifer Arreaga, SARAH, CNM - 07/10/2024 10:04 AM EDT Kellie Dyson is a 23 year old female here for her routine OB appointment at 35w3d Her Estimated Date of Delivery: 08/11/24 REVIEW OF SYSTEMS: She affirms movement. Denies vaginal bleeding, LOF, contractions, N/V, headaches. Feels increased pelvic pressure as babyis growing. PHYSICAL EXAM: Filed Vitals: 07/10/24 0949 BP: 104/70 Weight: 104.3 kg (230 lb) +FHT : 150 Fundal height : 32.5 ASSESSMENT/PLAN: (Z34.00) Supervision of normal first , antepartum (primary encounter diagnosis) Plan: (F41.1) [place] (generalized anxiety disorder) Plan: States she just gets nervous about hospital and delivery, encouraged CBE and (Z39.1) Breast feeding status of mother Plan: Breast Pump Rx printed (O26.843) Fundal height low for dates in third trimester Plan: PREG FOLLOW-UP EACH FETUS Supervision of - recommended flu vaccine - patient declines today - recommended Covid vaccine due to increased risk of severe disease in . Patient declines. Declined tdap - discussed GBS and to expect swab to be complete at next visit - labor precautions and kick counts reviewed - RTO in 1 weeks , growthUS with next visit as FH is 32.5cm Jennifer Arreaga DNP, PAT * Cara Junior RN - 07/10/2024 9:49 AM EDT Slide down driveway on Wednesday. Hit bottom not belly. Has not had bleeding or pain with belly. documented in this encounter Plan of Treatment Scheduled Orders Name Type Priority Associated Diagnoses Orde r Schedule US PREG FOLLOW-UP EACH FETUS Medical Imaging Routine Fundal height low for dates in third trimester Expected: 07/17/2024, Expires: 08/10/2025 Health Maintenance Due Date Last Done Comments [...] or the puerperium, antepartum condition or complication Breast feeding status of mother care and examination of lactating mother Fundal height low for dates in third trimester documented in this encounter
--- OUTSIDE RECORDS SUMMARY | 2024-08-22 11:06 | External Medical Summary | Summary of Care ---
Author Name Unknown Organization [facility] Address [address] [place] [address] Phone [phone] Care Team Providers Care Tubular Splitting Machine Tender Name Role Phone Unavailable Primary Care Provider Unavailabl e Reason for Visit * Reason Comments Outpatient Testing Encounter Details Date Type Department Care Team (Late st Contact Info) Description 06/23/2024 9:50 AM EDT Laboratory Laboratory, [facility] [address] [facility] [place] [phone] [facility] [address] [facility] [place] [address] Supervision of normal first , antepartum Allergies Active Allergy Reactions Criticality Noted Date Comments Sulfa Antibiotics Rash 12/04/2011 documented as of this encounter (statuses as of 06/23/2024) Medications Medication Sig Dispensed Refills Start Date End Date Status 28-0.8 MG Oral Tablet Take by mouth. Active documented as of this encounter (statuses as of 06/23/2024) Active Problems Problem Noted Date Diagnosed Date [...] as of this encounter (statuses as of 06/23/2024) Resolved Problems Problem Noted Date Diagnosed Date Resolved Date Class 1 obesity due to exces s calories in adult 01/06/2024 02/04/2024 Bronchospasm, exercise-induced 12/11/2011 01/27/2012 documented as of this encounter (statuses as of 06/23/2024) Immunizations Name Administration Dates Next Due DTaP [...] money to get more. Never true 01/06/2024 [place] Depression Scale Answer Date Recorded [place] Depression Scale Total 13 01/06/2024 The thought of harming myself has occurred to me . Never 01/06/2024 Childcare Answer Date Recorded Do you feel [...] on file documented as of this encounter Plan of Treatment Upcoming Encounters Date Type Department Care Team (Late st Contact Info) Description 07/10/2024 9:30 AM EDT [facility] [address] [facility] [place] [address] Jennifer Arreaga, DNP, CNM [address] [place] [address] Pending Results Name Type Priority Associated Diagnoses Date /Time CBC Lab Routine Supervision of normal first , antepartum 06/23/2024 9:49 AM EDT Health Maintenance Due Date Last Done Comments [...] Diagnoses Diagnosis Supervision of normal first , antepartum documented in this encounter
--- OUTSIDE RECORDS SUMMARY | 2024-08-22 11:06 | External Medical Summary | Summary of Care ---
Author Name Unknown Organization [facility] Address [address] [place] [address] Phone [phone] Care Team Providers Care Insert Molding Operator Name Role Phone Unavailable Primary Care Provider Unavailabl e Reason for Visit * Reason Comments Return Visit Encounter Details Date Type Department Care Team (Late st Contact Info) Description 06/23/2024 9:30 AM EDT Office Visit Gynecology/Obstetric [facility] [address] [facility] [place] [address] Letitia Johansen, [facility] [address] [place] [address] Supervision of normal first , antepartum*; L[place] (generalized anxiety disorder); Need for rubella vaccination; Class 1 obesity Allergies Active Allergy Reactions Criticality Noted Date [...] money to get more. Never true 01/06/2024 Burton Depression Scale Answer Date Recorded Burton Depression Scale Total 13 01/06/2024 The thought [...] Sign Reading Time Taken Comments Blood Pressure 122/72 06/23/2024 9:23 AM EDT Pulse - - Temperature - - Respiratory Rate - - Oxygen Saturation - - Inhaled Oxygen Concentration - - Weight 103 kg (227 lb) 06/23/2024 9:23 AM EDT Height - - Body Mass Index 36.64 05/22/2024 11:09 AM EDT documented in this encounter Progress Notes * Letitia Johansen CNM - 06/23/2024 9:30 AM EDT Kellie Dyson is a 23 year old female here for her routine OB appointment at 33w0d Her Estimated Date of Delivery: 08/11/24 REVIEW OF SYSTEMS: She affirms movement. Denies vaginal bleeding, LOF, contractions, headaches, vision changes, and RUQ pain. Just getting over being sick and thinks she had the flu. No longer having any fevers or chills or other concerns. Had some cramping in her upper belly. Went to L+D Wednesday night and said everything was fine. Denies dizziness, chest pain, and SOB. Had a syncopal episode but has not had any since then. Did not have EKG done. Quit tobacco as soon as she found out she was . Denies vaping or marijuana. PHYSICAL EXAM: Filed Vitals: 06/23/24 09 BP: 122/72 Weight: 103 kg (227 lb) +FHT 140-150bpm Fundal height: 32cm ASSESSMENT/PLAN: (F41.1) L[place]ON (generalized anxiety disorder) (Z23) Need for rubella vaccination Plan: -Will need MMR vaccine (E66.9) Class 1 obesity Plan: -Pregravid BMI 34.56 (Z34.00) Supervision of normal first , antepartum (primary encounter diagnosis) Plan: -Repeat CBC today per previous provider (due to elevated WBC) -Recommended childbirth education classes through "[facility]" - labor precautions and kick counts reviewed - RTO in 2 weeks Letitia Johansen CNM * Mirela Kinney LPN - 06/23/2024 9:23 AM EDT 33w0d Denies vaginal bleeding/rom + movement No new concerns documented in this encounter Plan of Treatment Upcoming Encounters Date Type Department Care Team (Late st Contact Info) Description 07/10/2024 9:30 AM EDT Office Visit Gynecology/Obstetrics [facility] [address] [facility] [place] [address] Jennifer Arreaga, SARAH, CNM [address] [place] [id number] Health Maintenance Due Date Last Done Comments [...] prophylactic vaccination and inoculation against rubella alone Class 1 obesity documented in this encounter
[2024-08-22] MEDS: LACTATED RINGER'S 1,000 ML IV PRN (18:23)
--- NOTE | 2024-08-22 20:56 | Obstetrical Progress Note ---
Date of Service August 22, 2024 Assessment & Plan (1) Encounter for induction of labor: Plan: Pt doing well No complaints VE; ft/post/thick Ctx 2-5 Cervidil placed in Vagina Admission and Anticipated Discharge Date Admission Date: August 22, 2024 Results & Data Vital Signs (Past 12 Hours) Vital Signs Temp Pulse Resp BP 08/22/24 20:15 37.0 C 18 08/22/24 20:10 18 08/22/24 20:10 37.0 C 18 08/22/24 20:09 63 132/85 08/22/24 16:16 67 130/75 08/22/24 16:15 16 08/22/24 16:15 37.1 C 16 08/22/24 12:26 36.8 C 69 122/78 08/22/24 10:16 97 H 136/92
[2024-08-22] MEDS: DINOPROSTONE 10 MG INSERT PV ONE (20:57)
[2024-08-23] MEDS: BUTORPHANOL TARTRATE 2 MG/ML VIAL IV ONE (04:36)
--- NOTE | 2024-08-23 04:45 | Anesthesiology Consultation ---
Date of Service August 23, 2024 Assessment & Plan (1) Encounter for pre-operative examination: Chart Review Chart Review: Acceptable Risk for Labor Epidural History Height/Weight Height: 5 ft 7 in Weight: 101.151 kg Allergies Allergy/AdvReac Type Severity Reaction Status Date / Time Sulfa (Sulfonamide Allergy Severe Anaphylaxis Verified 05/28/19 21:57 Antibiotics) Medications Home Medications Medication Instructions Recorded Confirmed Last Taken zvklchso-anw-Rz-FA 1 mg 1 tab PO DAILY 06/18/24 06/18/24 1 Day Ago tablet ~06/17/24 Active Medications Generic Name Dose Route Start Last Admin Trade Name Freq PRN Reason Stop Dose Admin Lactated Ringer's 1,000 mls @ 125 mls/hr 08/22/24 09:13 08/23/24 04:37 Lr IV 08/24/24 09:12 125 mls/hr .Q8H PRN Administration L&D Protocol Protocol Misoprostol 50 mcg 08/22/24 10:15 08/23/24 04:36 Misoprostol 50 Mcg Tab PO 09/21/24 10:14 Not Given Q4H JOSUE Past Medical History Medical History Asthma Anxiety Past Surgical History Surgical History History of placement of ear tubes Social History Smoking Status: Former smoker Do You Dip or Chew Tobacco: No Hx Alcohol Use: No Hx Substance Use: No Physical Exam Vital Signs Last Vital Signs Temp 37.0 C 08/22/24 20:15 Pulse 84 08/23/24 04:38 Resp 18 08/22/24 20:15 BP 142/71 H 08/23/24 04:14 Pulse Ox 93 08/23/24 04:38 Testing Laboratory Results 08/22/24 09:31
[2024-08-23] MEDS ORDERED: NALOXONE HCL 0.4 MG/1 ML VIAL/CARP IV PRN (05:11)
[2024-08-23] MEDS ORDERED: ePHEDrine sulfate 50 MG/ML AMP IV PRN (05:11)
[2024-08-23] MEDS: fentANYL 2 MCG/ML BUPIVacaine 0.125%-NSS 100ML BAG ONE (05:11)
[2024-08-23] MEDS ORDERED: fentANYL 2 MCG/ML BUPIVacaine 0.125%-NSS 100ML BAG EPI PRN (05:11)
[2024-08-23] MEDS ORDERED: fentaNYL citrate PF 100 MCG/2 ML VIAL EPI PRN (05:11)
[2024-08-23] MEDS ORDERED: BUPIVACAINE 0.25% PF 30 ML VIAL EPI PRN (05:11)
[2024-08-23] MEDS ORDERED: NALOXONE HCL 1 MG in SODIUM CHLORIDE 0.9% 1,000 ML IV PRN (05:11)
[2024-08-23] MEDS ORDERED: LIDOCAINE 2% MPF LOCAL 5 ML VIAL EPI PRN (05:11)
[2024-08-23] MEDS ORDERED: ONDANSETRON INJ 2 MG/ML 2 ML VIAL IV PRN (05:11)
[2024-08-23] MEDS ORDERED: ROPIVACAINE 0.5% PF 5 MG/ML 20 ML VIAL EPI PRN (05:11)
[2024-08-23] MEDS ORDERED: SODIUM CHLORIDE 0.9% PF INJ 10 ML VIAL EPI PRN (05:11)
[2024-08-23] MEDS: fentaNYL citrate PF 100 MCG/2 ML VIAL ONE (05:16)
[2024-08-23] MEDS: LIDOCAINE 2%/EPINEPHRINE 1:200,000 20 ML PF ONE (05:17)
[2024-08-23] MEDS: BUPIVACAINE 0.25% PF 30 ML VIAL ONE (05:17)
[2024-08-23] MEDS: ePHEDrine sulfate 50 MG/ML AMP ONE (05:51)
[2024-08-23] MEDS: SODIUM CHLORIDE 0.9% PF INJ 10 ML VIAL ONE (05:51)
[2024-08-23] MEDS: BUPIVACAINE 0.25% PF 30 ML VIAL EPI STA (05:51)
[2024-08-23] MEDS: LIDOCAINE 2%/EPINEPHRINE 1:200,000 20 ML PF EPI STA (05:52)
[2024-08-23] MEDS: fentaNYL citrate PF 100 MCG/2 ML VIAL EPI STA (05:52)
[2024-08-23] MEDS: SODIUM CHLORIDE 0.9% PF INJ 10 ML VIAL EPI STA (05:53)
--- NOTE | 2024-08-23 07:37 | Obstetrical Progress Note ---
Date of Service August 23, 2024 Assessment & Plan (1) Encounter for induction of labor: Plan: Pt doing well Epidural in place FHR; CAT1 Ctx; 4-5min VE 3-4/75/-2 Plan Starting Pitocin Admission and Anticipated Discharge Date Admission Date: August 22, 2024 Results & Data Vital Signs (Past 12 Hours) Vital Signs Temp Pulse Resp BP Pulse Ox 08/23/24 07:33 76 98 08/23/24 07:28 79 98 08/23/24 07:23 78 99 08/23/24 07:21 90 149/65 H 08/23/24 07:18 96 H 98 08/23/24 07:13 92 H 94 08/23/24 07:08 83 95 08/23/24 07:05 37.0 C 70 20 132/62 93 08/23/24 07:03 68 91 08/23/24 07:00 74 18 94 08/23/24 06:58 71 94 08/23/24 06:53 67 94 08/23/24 06:50 94 08/23/24 06:50 77 08/23/24 06:50 70 144/75 H 08/23/24 06:48 75 93 08/23/24 06:45 70 94 08/23/24 06:43 79 94 08/23/24 06:39 82 94 08/23/24 06:38 83 94 08/23/24 06:33 91 H 94 08/23/24 06:30 18 08/23/24 06:30 18 08/23/24 06:28 78 96 08/23/24 06:26 74 94 08/23/24 06:23 79 95 08/23/24 06:21 85 129/79 90 08/23/24 06:18 76 91 08/23/24 06:13 75 92 08/23/24 06:11 76 94 08/23/24 06:08 71 92 08/23/24 06:05 68 124/71 08/23/24 06:03 70 92 08/23/24 06:02 85 94 08/23/24 06:00 18 08/23/24 06:00 18 08/23/24 05:58 80 94 08/23/24 05:56 71 94 08/23/24 05:53 77 94 08/23/24 05:51 76 93 08/23/24 05:50 75 124/80 08/23/24 05:48 77 94 08/23/24 05:46 82 94 08/23/24 05:43 80 96 08/23/24 05:38 75 95 08/23/24 05:37 82 94 08/23/24 05:35 82 128/78 08/23/24 05:33 93 H 96 08/23/24 05:32 91 H 94 08/23/24 05:30 18 08/23/24 05:30 36.8 C 18 08/23/24 05:28 92 H 94 08/23/24 05:26 80 94 08/23/24 05:23 91 H 95 08/23/24 05:21 89 94 08/23/24 05:19 85 128/82 08/23/24 05:18 89 95 08/23/24 05:16 85 126/79 08/23/24 05:14 90 127/82 08/23/24 05:13 95 08/23/24 05:13 101 H 08/23/24 05:13 87 142/88 H 08/23/24 05:10 82 152/102 H 94 08/23/24 05:08 86 95 08/23/24 05:06 95 H 142/97 H 08/23/24 05:04 105 H 93 08/23/24 05:03 94 08/23/24 05:03 105 H 08/23/24 05:03 105 H 130/94 08/23/24 05:00 110 H 132/93 08/23/24 04:58 106 H 93 08/23/24 04:57 115 H 94 08/23/24 04:53 109 H 95 08/23/24 04:52 100 H 94 08/23/24 04:48 79 95 08/23/24 04:45 81 93 08/23/24 04:43 93 H 95 08/23/24 04:38 84 93 08/23/24 04:14 77 142/71 H 08/23/24 00:52 65 142/94 H 08/22/24 20:15 37.0 C 18 08/22/24 20:10 18 08/22/24 20:10 37.0 C 18 08/22/24 20:09 63 132/85
[2024-08-23] MEDS: OXYTOCIN 30 UNITS/NSS 30 UNITS/500 ML BAG IV PRN (08:25)
--- NOTE | 2024-08-23 10:42 | Labor Progress Brief Note ---
Date of Service August 23, 2024 Assessment & Plan Admission and Anticipated Discharge Date Admission Date: August 22, 2024 Physical Exam Genitourinary: Manual OB Exam: + cervical dilation 9 cm, + cervical effacement 100% and + station 0 OB Exam Monitor Tracing: + external FHT monitor used, + external uterine monitor used, + category I and + normal FHT variability Attempted AROM with Amni-hook with scant fluid noted Results & Data Vital Signs (Past 12 Hours) Vital Signs Temp Pulse Resp BP Pulse Ox 08/23/24 10:38 108 H 99 08/23/24 10:36 106 H 91 08/23/24 10:35 137/90 08/23/24 10:33 91 H 99 08/23/24 10:28 84 98 08/23/24 10:23 92 H 98 08/23/24 10:21 76 133/65 08/23/24 10:18 79 98 08/23/24 10:13 90 98 08/23/24 10:08 83 98 08/23/24 10:05 93 H 129/86 08/23/24 10:03 83 99 08/23/24 09:58 87 99 08/23/24 09:56 83 92 08/23/24 09:53 98 H 99 08/23/24 09:51 82 141/87 H 08/23/24 09:48 69 97 08/23/24 09:43 72 97 08/23/24 09:38 86 97 08/23/24 09:35 88 138/92 08/23/24 09:33 85 99 08/23/24 09:28 78 97 08/23/24 09:23 76 98 08/23/24 09:20 74 133/86 08/23/24 09:18 97 H 97 08/23/24 09:13 69 97 08/23/24 09:08 75 97 08/23/24 09:05 72 130/72 08/23/24 09:03 77 97 08/23/24 08:58 78 98 08/23/24 08:53 86 98 08/23/24 08:50 96 H 153/91 H 08/23/24 08:48 92 H 99 08/23/24 08:43 89 97 08/23/24 08:38 80 97 08/23/24 08:35 88 143/69 H 08/23/24 08:33 95 H 99 10/02/24 08:28 87 98 08/23/24 08:23 96 H 98 08/23/24 08:20 84 131/65 08/23/24 08:18 75 94 08/23/24 08:17 84 94 08/23/24 08:13 79 95 08/23/24 08:11 75 94 08/23/24 08:08 67 96 08/23/24 08:05 80 135/71 94 08/23/24 08:03 81 97 08/23/24 07:58 74 97 08/23/24 07:53 80 97 08/23/24 07:51 77 123/70 08/23/24 07:48 76 97 08/23/24 07:43 75 98 08/23/24 07:38 72 98 08/23/24 07:35 86 133/64 08/23/24 07:33 76 98 08/23/24 07:28 79 98 08/23/24 07:23 78 99 08/23/24 07:21 90 149/65 H 08/23/24 07:18 96 H 98 08/23/24 07:13 92 H 94 08/23/24 07:08 83 95 08/23/24 07:05 37.0 C 70 20 132/62 93 08/23/24 07:03 68 91 08/23/24 07:00 74 18 94 08/23/24 06:58 71 94 08/23/24 06:53 67 94 08/23/24 06:50 94 08/23/24 06:50 77 08/23/24 06:50 70 144/75 H 08/23/24 06:48 75 93 08/23/24 06:45 70 94 08/23/24 06:43 79 94 08/23/24 06:39 82 94 08/23/24 06:38 83 94 08/23/24 06:33 91 H 94 08/23/24 06:30 18 08/23/24 06:30 18 08/23/24 06:28 78 96 08/23/24 06:26 74 94 08/23/24 06:23 79 95 08/23/24 06:21 85 129/79 90 08/23/24 06:18 76 91 08/23/24 06:13 75 92 08/23/24 06:11 76 94 08/23/24 06:08 71 92 08/23/24 06:05 68 124/71 08/23/24 06:03 70 92 08/23/24 06:02 85 94 08/23/24 06:00 18 08/23/24 06:00 18 08/23/24 05:58 80 94 08/23/24 05:56 71 94 08/23/24 05:53 77 94 08/23/24 05:51 76 93 08/23/24 05:50 75 124/80 08/23/24 05:48 77 94 08/23/24 05:46 82 94 08/23/24 05:43 80 96 08/23/24 05:38 75 95 08/23/24 05:37 82 94 08/23/24 05:35 82 128/78 08/23/24 05:33 93 H 96 08/23/24 05:32 91 H 94 08/23/24 05:30 18 08/23/24 05:30 36.8 C 18 08/23/24 05:28 92 H 94 08/23/24 05:26 80 94 08/23/24 05:23 91 H 95 08/23/24 05:21 89 94 08/23/24 05:19 85 128/82 08/23/24 05:18 89 95 08/23/24 05:16 85 126/79 08/23/24 05:14 90 127/82 08/23/24 05:13 95 08/23/24 05:13 101 H 08/23/24 05:13 87 142/88 H 08/23/24 05:10 82 152/102 H 94 08/23/24 05:08 86 95 08/23/24 05:06 95 H 142/97 H 08/23/24 05:04 105 H 93 08/23/24 05:03 94 08/23/24 05:03 105 H 08/23/24 05:03 105 H 130/94 08/23/24 05:00 110 H 132/93 08/23/24 04:58 106 H 93 08/23/24 04:57 115 H 94 08/23/24 04:53 109 H 95 08/23/24 04:52 100 H 94 08/23/24 04:48 79 95 08/23/24 04:45 81 93 08/23/24 04:43 93 H 95 08/23/24 04:38 84 93 08/23/24 04:14 77 142/71 H 08/23/24 00:52 65 142/94 H
--- NOTE | 2024-08-23 12:42 | Delivery Summary ---
Vaginal Delivery Summary Date of Service August 23, 2024 Vaginal Delivery Summary live male NEGRO with nuchal cord x1 reduced at delivery of head with delayed cord clamping. Apgars 8/9 weighting. Cord blood obtained followed by spontaneous delivery of intact placenta. Small first degree tear at introitus not bleeding and not repaired. QBL 25 ml. Final sponge, needle and instrument count are correct.
[2024-08-23] MEDS ORDERED: HYDROCORTISONE ACETATE 25 MG SUPP PR PRN (12:44)
[2024-08-23] MEDS ORDERED: ACETAMINOPHEN 325 MG TAB PO PRN (12:44)
[2024-08-23] MEDS ORDERED: bisacodyL 10 MG SUPP PR PRN (12:44)
[2024-08-23] MEDS ORDERED: OXYTOCIN 30 UNITS/NSS 30 UNITS/500 ML BAG IV PRN (12:44)
--- NOTE | 2024-08-23 13:06 | Anesthesia Procedure Note ---
Date of Service August 23, 2024 Anesthesia Post Epidural Note Vital Signs Vital Signs: Temp Pulse Resp BP Pulse Ox 37.4 C 92 H 20 124/73 97 08/23/24 10:45 08/23/24 13:05 08/23/24 12:35 08/23/24 13:05 08/23/24 12:33 Pain Intensity Lower Medial Abdomen: Pain Intensity: 0 Notes Mental Status: alert / awake / arousable Nausea / Vomiting: adequately controlled Pain: adequately controlled Airway Patency, RR, SpO2: stable & adequate BP & HR: stable & adequate Hydration State: stable & adequate Neuraxial Anesthesia: was administered and sensory block is resolving Anesthetic Complications: no major complications apparent and Pt Satisfied with anesthetic care Epidural: Removed without complications and With tip intact
[2024-08-23] MEDS: BENZOCAINE 20% SPRY 85 APPLN/85 GM CAN EXT PRN (14:58)
[2024-08-23] MEDS: IBUPROFEN 600 MG TAB PO PRN (14:58)
[2024-08-23] MEDS: DIPHTHER/TETAN/PERTUS Vaccine (Tdap, Adol/Adult) 0.5mL IM ONE (14:58)
[2024-08-23] MEDS: DOCUSATE SODIUM 100 MG CAP PO SCH (20:01)
[2024-08-23 20:39] VITALS: RESP 18
[2024-08-24 06:30] LABS: Hematocrit (blood only) 37.4 % (37.0-47.0); Hemoglobin 12.6 g/dl (12.0-16.0); Mean Corpuscular Hemoglobin 30.4 pg (25.0-34.0); Mean Corpuscular Hgb Conc 33.7 g/dL (32.0-36.0); Mean Corpuscular Volume 90.3 fL (80.0-100.0); Platelet Count 175 K/uL (130-400); RDW Coefficient of Variation 13.6 % (11.5-14.5); RDW Standard Deviation 44.3 fL (36.4-46.3); Red Blood Count 4.14 M/uL (4.20-5.40); White Blood Count 13.88 K/ul (4.8-10.8)
[2024-08-24] MEDS: FERROUS SULFATE 325 MG TAB PO SCH (08:42)
[2024-08-24] MEDS: PRENATAL VITAMIN 1 TAB PO SCH (08:43)
[2024-08-24] MEDS ORDERED: NON-FORMULARY MEDICATION (Prenatal Multivit-Min-Fe-Fa 1 mg Tablet) PO SCH (09:00)
--- NOTE | 2024-08-24 10:23 | Obstetrical Progress Note ---
Date of Service August 24, 2024 Assessment & Plan (1) Vaginal delivery: Present on Admission?: Yes Plan routine care Regular diet encourage ambulation discharge plan for tomorrow Subjective Ambulation: ambulating normally Review of Systems All systems reviewed & are unremarkable except as noted in HPI & below Physical Exam pt denies heavy vaginal bleeding, vaginal pain, shortness of breadth, palpitations, dizziness etc. Normal lochia. Constitutional WD/WN, vitals as above Respiratory normal respiratory effort, lungs clear to auscultation Cardiovascular RRR, no murmur, no edema Results & Data Vital Signs (Past 12 Hours) Vital Signs Temp Pulse Resp BP Pulse Ox O2 Del Method 08/24/24 08:20 36.6 C 74 18 122/82 99 Room Air 08/24/24 04:15 36.5 C 70 18 110/74 98 Room Air 08/23/24 23:45 36.6 C 72 18 119/75 98 Room Air
[2024-08-24 15:54] VITALS: TEMP 98.4
[2024-08-24] MEDS: bisacodyL 5 MG TABEC PO SCH (19:58)
[2024-08-25 01:30] VITALS: PULSE 66; O2SAT 99
[2024-08-25 07:31] LABS: Hematocrit (blood only) 34.7 % (37.0-47.0); Hemoglobin 11.9 g/dl (12.0-16.0)
--- NOTE | 2024-08-25 08:37 | Obstetrical Progress Note ---
Date of Service August 25, 2024 Assessment & Plan (1) Normal course: PPD #2 pt doing well No complaints D/c home with instructions Subjective Ambulation: ambulating normally Voiding: no voiding problems Passing Gas:: Yes Diet Tolerance:: regular diet Lochia:: Small Feeding Type:: breast feeding Review of Systems All systems reviewed & are unremarkable except as noted in HPI & below Physical Exam Constitutional WD/WN, vitals as above well developed and well nourished Eyes PERRL, conjunctivae normal, anicteric sclerae Neck trachea midline, no thyromegaly Respiratory normal respiratory effort, lungs clear to auscultation Auscultation: no crackles, no rales and no wheezes Cardiovascular RRR, no murmur, no edema Gastrointestinal (Abdomen) normal bowel sounds, soft, nontender, no hepatosplenomegaly Uterus is below umbilicus Musculoskeletal no cyanosis or clubbing, extremities motor strength 5/5 Skin no rashes, warm and dry Neurologic patellar DTR's 2+ bilat, sensation intact Psychiatric A+Ox3, euthymic affect Genitourinary normal external appearance Results & Data Vital Signs (Past 12 Hours) Vital Signs Temp Pulse Resp BP Pulse Ox O2 Del Method 08/25/24 00:15 36.9 C 66 18 110/70 99 Room Air
[2024-08-25 11:38] VITALS: BP 110/70
== END 2024-08-25 14:30 | disposition home or self-care (01) | DRG 807 ==
LOC: 4S1 07:39 → 4E2 08-23 15:00
DX: O69.81X0 Labor and delivery complicated by cord around neck, without compression, not applicable or unspecified; Z3A.41 41 weeks gestation of pregnancy; Z37.0 Single live birth; O70.0 First degree perineal laceration during delivery; O48.0 Post-term pregnancy